=== PATIENT | female | born 1970 | race Caucasian/White ===

== ENCOUNTER 2017-06-19 11:00 | Emergency (ER) | payer OTHER ==
[~2017-06-19] VITALS: Ht 160 cm; Wt 57.8 kg
[~2017-06-19 11:00] MED LIST: CIPRO500 MG PO; FLA250 PO; ZOFRAN ODT4 MG SL
[2017-06-19 13:09] VITALS: BP 137/74
== END 2017-06-19 13:09 | disposition home or self-care (01) ==
LOC: ED 11:00
DX: M62.830 Muscle spasm of back (principal); E78.00 Pure hypercholesterolemia, unspecified; F17.210 Nicotine dependence, cigarettes, uncomplicated; Z71.6 Tobacco abuse counseling; R03.0 Elevated blood-pressure reading, without diagnosis of hypertension
CPT/HCPCS: 20552; 99406; J2001